=== PATIENT | female | born 1955 | race Caucasian/White ===

== ENCOUNTER → 2016-12-24 | Outpatient (CLI) | payer MEDICARE ==
[~2016-12-24] VITALS: Ht 160 cm; Wt 81.6 kg
== END ==
LOC: OPSV 12:00
DX: D50.9 Iron deficiency anemia, unspecified (principal)
CPT/HCPCS: 96365; J1756; J7050

== ENCOUNTER → 2016-12-26 | Outpatient (CLI) | payer MEDICARE ==
[~2016-12-26] VITALS: Ht 160 cm; Wt 81.6 kg
== END ==
LOC: OPSV 15:30
DX: D50.9 Iron deficiency anemia, unspecified (principal)
CPT/HCPCS: 96365; J1756; J7050

== ENCOUNTER → 2017-01-04 | Outpatient (CLI) | payer MEDICARE ==
[~2017-01-04] VITALS: Ht 160 cm; Wt 81.6 kg
== END ==
LOC: OPSV 01-01 15:30
DX: D50.9 Iron deficiency anemia, unspecified (principal)
CPT/HCPCS: 96365; J1756; J7050

== ENCOUNTER → 2021-03-31 | Outpatient (CLI) | payer MEDICARE ==
[~2021-03-31] MED LIST: COLACE 100MG C100 MG PO; KEFLEX CAP 500500 MG PO
== END ==
LOC: RAD 14:28
DX: M47.816 Spondylosis without myelopathy or radiculopathy, lumbar region (principal)
CPT/HCPCS: 72100

== ENCOUNTER → 2021-06-12 | Outpatient (CLI) | payer MEDICARE | LOC: OPSV 14:28 | DX: D50.9 Iron deficiency anemia, unspecified (principal) | CPT/HCPCS: 96365; J1756 ==

== ENCOUNTER → 2021-06-14 | Outpatient (CLI) | payer MEDICARE ==
[~2021-06-14] VITALS: Ht 162.6 cm; Wt 85.3 kg
== END ==
LOC: OPSV 15:00
DX: D50.9 Iron deficiency anemia, unspecified (principal)
CPT/HCPCS: 96365; J1756